=== PATIENT | male | born 2000 | race Caucasian/White ===

== ENCOUNTER 2018-09-10 16:15 | Emergency (ER) | payer SELFPAY ==
[~2018-09-10] VITALS: Ht 162.6 cm; Wt 68.0 kg
[2018-09-10 16:34] VITALS: BP 133/82
[2018-09-10] MEDS ORDERED: CEPHALEXIN 250MG CAPSULE PO ONE (18:00)
== END 2018-09-10 18:54 | disposition home or self-care (01) ==
LOC: ER 16:15
DX: S61.422A Laceration with foreign body of left hand, initial encounter (principal); W34.010A Accidental discharge of airgun, initial encounter; Y93.89 Activity, other specified; Y92.89 Other specified places as the place of occurrence of the external cause; R03.0 Elevated blood-pressure reading, without diagnosis of hypertension
CPT/HCPCS: 73130; 99283

== ENCOUNTER 2020-10-17 09:40 | Emergency (ER) | payer SELFPAY ==
[~2020-10-17] VITALS: Ht 172.7 cm; Wt 78.0 kg
[2020-10-17] MEDS ORDERED: PREDNISONE 20MG TABLET PO ONE (10:00)
[2020-10-17] MEDS ORDERED: ACETAMINOPHEN 325MG TABLET PO ONE (10:00)
[2020-10-17 11:26] VITALS: BP 121/75
== END 2020-10-17 11:26 | disposition home or self-care (01) ==
LOC: ER 09:40
DX: Z03.818 Encounter for observation for suspected exposure to other biological agents ruled out (principal); R05 Cough; R50.9 Fever, unspecified; M79.18 Myalgia, other site; R06.02 Shortness of breath
CPT/HCPCS: 71045; 87635; 93005; 99283; J7512